=== PATIENT | female | born 1965 | race Caucasian/White ===

== ENCOUNTER 2025-05-31 11:22 | Outpatient (CLI) | payer MEDICARE, MEDICAID ==
[~2025-05-31 11:22] MED LIST: CLON-527 PO; CYCL-394 PO; IBUP-1984 PO; PER10325T PO; TIZA2CAP PO
--- NOTE | 2025-05-31 13:09 | RADIOLOGY REPORT ---
CLINICAL INDICATION: PAIN IN R SHOULDER, IMPINGEMENT SYNDROME OF R SHOULDER COMPARISON: None TECHNIQUE: Multiplanar, multisequence MRI of the right shoulder was performed without contrast. Contrast: None FINDINGS: Glenohumeral joint: There is no fracture or bone marrow edema. Alignment is maintained. There is chondral thinning in the humeral head. There is no joint effusion or synovitis. Acromioclavicular joint: The acromioclavicular joint is narrowed with capsular hypertrophy. There is type 2 acromion. Rotator cuff and bursae: There is supraspinatus tendinosis and a partial- thickness articular surface tear. There is infraspinatus tendinosis and a partial-thickness articular surface tear. There is subscapularis tendinosis and interstitial tear. Teres minor tendon is intact. There is no regional muscle atrophy. There is fluid distention of the subacromial subdeltoid bursa. Biceps tendon and glenoid labrum: There is interstitial tear of the proximal long head biceps tendon. There is a tear of the anterior superior glenoid labrum. IMPRESSION: 1. Supraspinatus and infraspinatus tendinosis and partial-thickness articular surface tears in the right shoulder. Subscapularis tendinosis and interstitial tear. No full-thickness rotator cuff tear. 2. Interstitial tear of the proximal long head biceps tendon. 3. Tear of the anterior superior glenoid labrum.
== END 2025-05-31 23:59 | disposition home or self-care (01) ==
LOC: MRI02 11:22
PROVIDERS: ATTEND Family Medicine Sports Medicine
DX: S43.431A Superior glenoid labrum lesion of right shoulder, initial encounter (principal); M75.101 Unspecified rotator cuff tear or rupture of right shoulder, not specified as traumatic; M25.511 Pain in right shoulder; M77.9 Enthesopathy, unspecified; M75.41 Impingement syndrome of right shoulder; X58.XXXA Exposure to other specified factors, initial encounter; Y93.89 Activity, other specified; Y92.89 Other specified places as the place of occurrence of the external cause; Y99.8 Other external cause status
CPT/HCPCS: 73221